=== PATIENT | female | born 1940 | race Caucasian/White ===

== ENCOUNTER → 2021-12-09 10:39 | Outpatient (BNVA) | payer MEDICARE, OTHER, SELFPAY | PROVIDERS: Visit Provider Nurse Practitioner Family | DX: R23.3 Spontaneous ecchymoses (principal) | CPT/HCPCS: 73130; 85610 ==

== ENCOUNTER → 2022-10-16 10:58 | Outpatient (BNVA) | payer MEDICARE, OTHER, SELFPAY | PROVIDERS: Visit Provider Nurse Practitioner Family | DX: R35.0 Frequency of micturition (principal); S61.451A Open bite of right hand, initial encounter; W55.01XA Bitten by cat, initial encounter | CPT/HCPCS: 81000 ==

== ENCOUNTER → 2024-03-17 09:00 | Outpatient (BNVA) | payer MEDICARE, OTHER, SELFPAY | PROVIDERS: PCP Nurse Practitioner; Visit Provider Nurse Practitioner Family | DX: R30.0 Dysuria (principal) | CPT/HCPCS: 81000; 87086 ==

== ENCOUNTER → 2024-03-26 09:33 | Outpatient (BNVA) | payer MEDICARE, OTHER, SELFPAY | PROVIDERS: PCP Nurse Practitioner; Visit Provider Nurse Practitioner Family | DX: N39.0 Urinary tract infection, site not specified (principal) | CPT/HCPCS: 81000 ==

== ENCOUNTER → 2024-04-29 10:25 | Outpatient (BNVA) | payer MEDICARE, OTHER, SELFPAY | PROVIDERS: PCP Nurse Practitioner; Visit Provider Nurse Practitioner | DX: I10 Essential (primary) hypertension (principal) | CPT/HCPCS: 85025 ==

== ENCOUNTER 2024-05-06 06:00 | Outpatient (RCR) | payer MEDICARE, OTHER, SELFPAY | END 2024-05-07 23:59 | disposition home or self-care (01) | LOC: MPS 06:00 | PROVIDERS: PCP Nurse Practitioner; Visit Provider Student in an Organized Health Care Education/Training Program | DX: R26.81 Unsteadiness on feet (principal); M62.81 Muscle weakness (generalized) | CPT/HCPCS: 97110; 97162 ==

== ENCOUNTER 2024-05-08 06:00 | Outpatient (RCR) | payer MEDICARE, OTHER, SELFPAY | END 2024-06-07 23:59 | disposition home or self-care (01) | LOC: MPS 06:00 | PROVIDERS: PCP Nurse Practitioner; Visit Provider Student in an Organized Health Care Education/Training Program | DX: R26.81 Unsteadiness on feet (principal); M62.81 Muscle weakness (generalized) | CPT/HCPCS: 97110; 97112 ==

== ENCOUNTER 2024-06-08 06:00 | Outpatient (RCR) | payer MEDICARE, OTHER, SELFPAY | END 2024-07-07 23:59 | disposition home or self-care (01) | LOC: MPS 06:00 | PROVIDERS: PCP Nurse Practitioner; Visit Provider Student in an Organized Health Care Education/Training Program | DX: R26.81 Unsteadiness on feet (principal); M26.81 Anterior soft tissue impingement | CPT/HCPCS: 97110; 97112; 97116 ==

== ENCOUNTER → 2024-07-11 09:33 | Outpatient (BNVA) | payer MEDICARE, OTHER, SELFPAY | PROVIDERS: PCP Nurse Practitioner; Visit Provider Nurse Practitioner Family | DX: N39.0 Urinary tract infection, site not specified (principal) | CPT/HCPCS: 81000 ==

== ENCOUNTER → 2024-08-11 08:43 | Outpatient (BNVA) | payer MEDICARE, OTHER, SELFPAY | PROVIDERS: PCP Nurse Practitioner; Visit Provider Nurse Practitioner | DX: N39.0 Urinary tract infection, site not specified (principal); R31.9 Hematuria, unspecified | CPT/HCPCS: 81000 ==

== ENCOUNTER → 2024-08-13 10:03 | Outpatient (BNVA) | payer MEDICARE, OTHER, SELFPAY | PROVIDERS: PCP Nurse Practitioner; Visit Provider Nurse Practitioner | DX: S49.91XA Unspecified injury of right shoulder and upper arm, initial encounter (principal); M25.711 Osteophyte, right shoulder; M25.811 Other specified joint disorders, right shoulder; M25.511 Pain in right shoulder; W19.XXXA Unspecified fall, initial encounter | CPT/HCPCS: 73030 ==

== ENCOUNTER → 2024-11-12 09:54 | Outpatient (BNVA) | payer MEDICARE, OTHER, SELFPAY | PROVIDERS: PCP Nurse Practitioner; Visit Provider Student in an Organized Health Care Education/Training Program | DX: M75.41 Impingement syndrome of right shoulder (principal) | CPT/HCPCS: 20610; 99204; J3301 ==

== ENCOUNTER → 2025-01-30 09:41 | Outpatient (BNVA) | payer MEDICARE, OTHER, SELFPAY | PROVIDERS: PCP Nurse Practitioner; Visit Provider Nurse Practitioner | DX: R06.00 Dyspnea, unspecified (principal); R31.9 Hematuria, unspecified; N39.0 Urinary tract infection, site not specified | CPT/HCPCS: 81000; 87086 ==

== ENCOUNTER → 2025-02-19 15:17 | Outpatient (BNVA) | payer MEDICARE, OTHER, SELFPAY | PROVIDERS: PCP Nurse Practitioner; Visit Provider Nurse Practitioner | DX: N39.0 Urinary tract infection, site not specified (principal); R31.9 Hematuria, unspecified | CPT/HCPCS: 81000; 87086 ==

== ENCOUNTER 2025-04-07 05:00 | Outpatient (RCR) | payer MEDICARE, OTHER, SELFPAY | END 2025-05-07 23:59 | disposition home or self-care (01) | LOC: MPT 05:00 | PROVIDERS: Visit Provider Nurse Practitioner | DX: R26.89 Other abnormalities of gait and mobility (principal); M75.41 Impingement syndrome of right shoulder; I89.0 Lymphedema, not elsewhere classified | CPT/HCPCS: 97162 ==

== ENCOUNTER 2025-04-08 09:12 | Outpatient (CLI) | payer MEDICARE, OTHER, SELFPAY ==
--- NOTE | 2025-04-08 10:00 | USCV_ITS ---
Kimberly Cifuentes Age: 84 Gender: F : 1940 Exam Date: 04/08/2025 09:51 Ordering Phys: Nila FaulknerP FRUIT RANCHER Technologist: Exam Location: [facility] [place]: CP SOB BP: 121 / 73 HR: 84 Rhythm: Sinus Technical Quality: MEASUREMENTS (Male / Female) Normal Values 2D ECHO LV Diastolic Diameter PLAX 3.6 cm 4.2 - 5.9 / 3.9 - 5.3 cm IVS Diastolic Thickness 1.3 cm 0.6 - 1.0 / 0.6 - 0.9 cm IVS Systolic Thickness 2.1 cm LVPW Diastolic Thickness 1.4 cm 0.6 - 1.0 / 0.6 - 0.9 cm LVPW Systolic Thickness 1.4 cm LVOT Diameter 2.0 cm LV Ejection Fraction 2D Teich 65.3 % LV Ejection Fraction MOD 4C 67.9 % LV Ejection Fraction MOD 2C 60.3 % LV Ejection Fraction 2C AL 59.4 % LA Diameter 4.4 cm RA Systolic Volume 4C AL 62.8 ml RA Systolic Volume 4C MOD 58.9 ml LA Sys Volume AL 69.5 cm cubed LA Sys Volume Index AL 37.0 cm cubed/m squared Aorta at Sinotubular Diameter 2.9 cm M-MODE LA Ao Ratio MM 1.3 AV Cusp Separation MM 2.0 cm DOPPLER AV Peak Velocity 214.0 cm/s LVOT Peak Velocity 101.0 cm/s AV Area Cont Eq vti 1.9 cm squared AV Area Cont Eq pk 1.5 cm squared MV Peak Velocity 159.0 cm/s MV Area PHT 4.0 cm squared Mitral E to A Ratio 1.0 TV Peak Velocity 293.0 cm/s TR Peak Velocity 309.0 cm/s TR Peak Gradient 38.2 mmHg TV Peak E Velocity 133.0 cm/s PV Peak Velocity 140.0 cm/s FINDINGS Left Ventricle Left ventricle is normal size. LV systolic function is normal with EF of 60 to 65%. No regional wall motion abnormalities are seen. Mild left ventricular hypertrophy Right Ventricle Normal in size and function Right Atrium Normal in size Left Atrium Dilated Mitral Valve Mild mitral annular calcification. Trace mitral regurgitation Aortic Valve Aortic valve is thickened and calcified. Mild aortic stenosis with aortic valve area 1.87 cm squared and mean gradient of 8 mmHg Tricuspid Valve Mild tricuspid regurgitation. RVSP is 35-40 mmHg. This is consistent with mild pulmonary hypertension Pulmonic Valve Mild pulmonic regurgitation Pericardium Normal Aorta Normal in size IVC Not well visualized CONCLUSIONS LV systolic function is normal with EF of 60- 65%. Mild left ventricular hypertrophy. Left atrial dilation Trace mitral regurgitation Mild aortic stenosis Mild tricuspid regurgitation Mild pulmonary hypertension. Mild pulmonic regurgitation. No comparison studies are available Jean Dukes MD (Electronically Signed) Final Date: 18 April 2025 21:12 S
== END 2025-04-08 09:13 | disposition home or self-care (01) ==
LOC: RAD 09:13
PROVIDERS: PCP Nurse Practitioner; Visit Provider Nurse Practitioner
DX: R60.0 Localized edema (principal); R93.1 Abnormal findings on diagnostic imaging of heart and coronary circulation; I34.81 Nonrheumatic mitral (valve) annulus calcification; I35.8 Other nonrheumatic aortic valve disorders; I35.0 Nonrheumatic aortic (valve) stenosis; I07.1 Rheumatic tricuspid insufficiency; I37.1 Nonrheumatic pulmonary valve insufficiency
CPT/HCPCS: 93306

== ENCOUNTER 2025-05-08 05:00 | Outpatient (RCR) | payer MEDICARE, OTHER, SELFPAY | END 2025-06-07 23:59 | disposition home or self-care (01) | LOC: MPT 05:00 | PROVIDERS: Visit Provider Nurse Practitioner | DX: I89.0 Lymphedema, not elsewhere classified (principal) | CPT/HCPCS: 97140; 97161 ==

== ENCOUNTER 2025-06-08 06:30 | Outpatient (RCR) | payer MEDICARE, OTHER, SELFPAY | END 2025-07-07 23:59 | disposition home or self-care (01) | LOC: MPT 06:30 | PROVIDERS: Visit Provider Nurse Practitioner | DX: M62.81 Muscle weakness (generalized) (principal); R26.81 Unsteadiness on feet | CPT/HCPCS: 97110; 97112; 97530 ==

== ENCOUNTER → 2025-06-24 11:10 | Outpatient (BNVA) | payer MEDICARE, OTHER, SELFPAY | PROVIDERS: PCP Nurse Practitioner; Visit Provider Nurse Practitioner | DX: I10 Essential (primary) hypertension (principal); R10.30 Lower abdominal pain, unspecified | CPT/HCPCS: 81000 ==

== ENCOUNTER 2025-07-08 05:00 | Outpatient (RCR) | payer MEDICARE, OTHER, SELFPAY | END 2025-08-07 23:59 | disposition home or self-care (01) | LOC: MPT 05:00 | PROVIDERS: PCP Nurse Practitioner; Visit Provider Nurse Practitioner | DX: M62.81 Muscle weakness (generalized) (principal); R26.81 Unsteadiness on feet | CPT/HCPCS: 97110; 97112; 97530 ==

== ENCOUNTER → 2025-08-17 11:42 | Outpatient (BNVA) | payer MEDICARE, OTHER, SELFPAY | PROVIDERS: PCP Nurse Practitioner; Visit Provider Nurse Practitioner | DX: N39.0 Urinary tract infection, site not specified (principal); R31.9 Hematuria, unspecified; S92.322D Displaced fracture of second metatarsal bone, left foot, subsequent encounter for fracture with routine healing; S92.332D Displaced fracture of third metatarsal bone, left foot, subsequent encounter for fracture with routine healing; S92.342D Displaced fracture of fourth metatarsal bone, left foot, subsequent encounter for fracture with routine healing; X58.XXXD Exposure to other specified factors, subsequent encounter | CPT/HCPCS: 73630; 81000; 87086 ==